=== PATIENT | female | born 1940 | race Caucasian/White ===

== ENCOUNTER 2019-06-22 11:41 | Emergency (ER) | payer OTHER ==
[2019-06-22 12:30] VITALS: BP 130/66; PULSE 80; TEMP 98.6; BMI 26.6
--- NOTE | 2019-06-22 12:49 | PDOC ---
History of Present Illness - General Chief Complaint: Altered Mental Status Stated Complaint: Altered Mental Status Time Seen by Provider: 06/22/19 12:12 - History of Present Illness Initial Comments: 06/22/19 12:42 CHIEF COMPLAINT: brought in by police officers HISTORY OF PRESENT ILLNESS: 79 yo F with hx of dementia presents to ED s/p interaction with police officers. Patient is accompanied by her drawer in stitch bonding machine at bedside who states that the patient has a history of "wandering off" due to her dementia." She states that the patient was in her (the drawer in stitch bonding machine's vehicle) while the drawer in stitch bonding machine was grocery shopping (patient refused to go inside grocery store with her) and got out of the car and waved down the police officers to speak to them. Duee to that interaction the police officers believed that the protocol was to bring her to the ER to have her cleared to be released to home. Per drawer in stitch bonding machine, patient is at her baseline. 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 PAST MEDICAL HISTORY: Denies past medical history FAMILY HISTORY: Denies SOCIAL HISTORY: Denies tobacco, alcohol, illicit drug use. SURGICAL HISTORY: Denies ALLERGIES: No known drug allergies REVIEW OF SYSTEMS- unable to complete given pt's hx of dementia PHYSICAL EXAM General Appearance: Well-appearing, appropriately dressed. No apparent distress , no intoxication. HEENT: EOMI, PERRLA, normal ENT inspection, normal voice, TMs normal, pharynx normal. No conjunctival pallor. No photophobia, scleral icterus. Neck: Supple. Trachea midline. No tenderness, rigidity, carotid bruit, stridor , lymphadenopathy, or thyromegaly. Respiratory/Chest: Lungs CTAB. No shortness of breath, chest tenderness, respiratory distress, accessory muscle use. No crackles, rales, rhonchi, stridor , wheezing, dullness Cardiovascular: RRR. S1, S2. No JVD, murmur, bradycardia, tachycardia. Vascular Pulses: Dorsalis-Pedis (R): 2+, Dorsalis-Pedis (L): 2+ Gastrointestinal/Abdominal: Normal bowel sounds. Abdomen soft, non-distended. No tenderness or rebound tenderness. No organomegaly, pulsatile mass, guarding , hernia, hepatomegaly, splenomegaly. Lymphatic: No adenopathy, tenderness. Musculoskeletal/Extremities: Normal inspection. FROM of all extremities, normal capillary refill. Pelvis Stable. No CVA tenderness. No tenderness to extremities, pedal edema, swelling, erythema or deformity. Integumentary: Appropriate color, dry, warm. No cyanosis, erythema, jaundice or rash Neurologic: Unable to complete. Past History - Past Medical History Allergies/Adverse Reactions: Allergies Allergy/AdvReac Type Severity Reaction Status Date / Time No Known Allergies Allergy Verified 06/22/19 12:44 Home Medications: Ambulatory Orders Unobtainable 06/22/19 Cancer: Yes (breast) COPD: No Dementia: Yes - Surgical History Appendectomy: Yes Cholecystectomy: Yes Neurologic Surgery: Yes (lower back diskectomy) - Psycho Social/Smoking Cessation Hx Smoking History: Smoker current status UNK Have you smoked in the past 12 months: No Information on smoking cessation initiated: No Hx Alcohol Use: No Drug/Substance Use Hx: No *Physical Exam - Vital Signs Last Vital Signs Temp Pulse Resp BP Pulse Ox 98.6 F 80 18 130/66 100 06/22/19 11:57 06/22/19 11:57 06/22/19 11:57 06/22/19 11:57 06/22/19 11:57 Medical Decision Making - Medical Decision Making 06/22/19 13:00 79 yo F with hx of dementia presents to ED s/p interaction with police officers. Spoke with patient's daughter Nahum who is the legal guardian. Daughter agrees that the patient "is fine and this is her baseline, she does this all the time, she's completely fine, she can go home." Will dc pt to home with drawer in stitch bonding machine. Discharge - Discharge Information Problems reviewed: Yes Clinical Impression/Diagnosis: Dementia Qualifiers: Dementia type: unspecified type Dementia behavioral disturbance: without behavioral disturbance Qualified Code(s): F03.90 - Unspecified dementia without behavioral disturbance Condition: Stable Disposition: HOME - Admission No - Follow up/Referral Referrals: Doug Agudelo [Primary Care Provider] - - Patient Discharge Instructions Patient Printed Discharge Instructions: Dementia - Post Discharge Activity
== END 2019-06-22 12:56 | disposition home or self-care (01) ==
LOC: JER 11:41
DX: F03.90 Unspecified dementia, unspecified severity, without behavioral disturbance, psychotic disturbance, mood disturbance, and anxiety (principal); Z85.3 Personal history of malignant neoplasm of breast; Z87.891 Personal history of nicotine dependence
CPT/HCPCS: 99281-25